=== PATIENT | male | born 1985 | race Caucasian/White ===

== ENCOUNTER 2023-05-25 14:53 | Emergency (ER) | payer OTHER, SELFPAY ==
[2023-05-25 15:04] VITALS: BP 138/66; PULSE 85; RESP 18; TEMP 36.9; O2SAT 97; BMI 25.7
[2023-05-25 16:18] LABS: Add Manual Diff / Slide Review NO; Basophils Absolute Auto 100 /uL (0-100); Basophils Percent Auto 1.1 % (0-2); Eosinophils Absolute Auto 200 /uL (0-450); Eosinophils Percent Auto 2.9 % (2-4); Hemoglobin 14.2 g/dL (13.5-17.5); Lymphocytes Absolute Auto 1600 /uL (1100-4500); Lymphocytes Percent Auto 27.8 % (25-40); Mean Corpuscular HGB Conc 35.4 % (30-36); Mean Corpuscular Hemoglobin 31.3 PG (26-34); Mean Corpuscular Volume 88.4 fL (80-100); Monocytes Absolute Auto 400 /uL (0-900); Monocytes Percent Auto 6.1 % (3-14); Neutrophils Absolute Auto 3600 /uL (1500-7000); Neutrophils Percent Auto 62.1 % (50-75); Platelet Count 231 X10^3/uL (150-400); Red Blood Cell Count 4.53 X10^6/uL (4.5-5.9); White Blood Cell Count 5.8 X10^3/uL (4.5-11.0)
[2023-05-25 16:22] LABS: BUN Creatinine Ratio 10.8 (6-22); Blood Urea Nitrogen 11 mg/dL (9-20); Calcium 8.9 mg/dL (8.4-10.2); Carbon Dioxide 29 mmol/L (22-32); Chloride 98 mmol/L (98-107); Estimated Glomerular Filt Rate > 60 mL/min (>60); Glucose 90 mg/dL (70-100); HEMOLYSIS < 15 (0-50); Potassium 4.1 mmol/L (3.4-5.1); Sodium 135 mmol/L (137-145)
--- NOTE | 2023-05-25 16:40 | ED.DIZZY ---
HPI - Dizziness <Danyell Ashley PA-C - Last Filed: 05/25/23 19:38> General Chief Complaint: Dizziness Stated Complaint: vertigo/fatigue Time Seen by Provider: 05/25/23 16:09 Source: patient Mode of arrival: Ambulatory History of Present Illness HPI Narrative: Patient is a 38-year-old male presenting for evaluation of dizziness on and off for the last month. Reports that it occurs quickly then leaves quickly multiple times throughout the day. He notes that at night sometimes he feels that his bed is moving. He says that when this happens at night, his heart rate increases and he feels that occasionally it skips a beat. He denies any chest pain. He does note that he is had a headache the last couple days. He denies any history of heart issues or family history. He states that when these symptoms started a month ago, it presented with a high-pitched noise. He says that the high-pitched sound in his right ear has not returned. He denies any sore throat, cough, fever or runny nose. He does notice sensation of facial fullness especially in his forehead for the last week. He denies any hearing loss or clogged sensation in his ears or ear pain. He denies any recent fever, body aches or chills. He does note that it has generally become difficult soaks in his eyes. He reports he has noticed an odd sensation in his left hand but he also says that with his anxiety he is uncertain if he was imagining it. He says it is not present now. He denies any onset of dizziness or worsening with activity. Related Data Allergies Allergy/AdvReac Type Severity Reaction Status Date / Time No Known Drug Allergies Allergy Verified 05/25/23 15:04 Review of Systems <Danyell Ashley PA-C - Last Filed: 05/25/23 19:38> Review of Systems Narrative: per HPI Patient History <Danyell Ashley PA-C - Last Filed: 05/25/23 19:38> Social History Smoking Status: Current some day smoker Smoking Status: Current some day smoker tobacco type: vaping alcohol intake frequency: holidays/special occasions only Substance Use Type: does not use Exam <Danyell Ashley PA-C - Last Filed: 05/25/23 19:38> Initial Vital Signs Initial Vital Signs: Vital Signs Temperature 98.4 F 05/25/23 15:04 Pulse Rate 85 05/25/23 15:04 Respiratory Rate 18 05/25/23 15:04 Blood Pressure 138/66 05/25/23 15:04 Pulse Oximetry 97 05/25/23 15:04 Oxygen Delivery Method Room Air 05/25/23 15:04 GENERAL: 38 year old patient appears stated age. Well-developed patient, in no acute distress. HEAD: Atraumatic. Normocephalic. EYES: Pupils equal round and reactive. Extraocular motions intact. No nystagmus noted No scleral icterus. No injection or drainage. ENT: Nose without bleeding, purulent drainage. Throat with mild erythema, no tonsillar hypertrophy or exudate. Airway patent. Uvula midline left TM appears pearly springer with good cone of light, right TM appears somewhat dull with no bulging or erythema Nontender to mastoid, tragus or pinna palpation. NECK: Trachea midline. Non tender. No cervical lymphadenopathy no bruits noted CARDIOVASCULAR: Regular rate and rhythm without murmurs, gallops, or rubs. RESPIRATORY: Clear to auscultation. Breath sounds equal bilaterally. No wheezes, rales, or rhonchi. EXTREMITIES: No edema or joint tenderness. NEURO: AOx3. [id number] intact bilaterally, tech journeyman pressman strength bilaterally, intact elbow flexion extension, intact knee flexion and extension and toe dorsiflexion and plantar flexion bilaterally. Rapid alternating movements intact, negative Romberg sign. Patient maintains good balance while standing. SKIN: No rash or erythema of visible areas <Eliana Torres DO - Last Filed: 05/26/23 18:12> Initial Vital Signs Initial Vital Signs: Vital Signs Temperature 98.4 F 05/25/23 15:04 Pulse Rate 85 05/25/23 15:04 Respiratory Rate 18 05/25/23 15:04 Blood Pressure 138/66 05/25/23 15:04 Pulse Oximetry 97 05/25/23 15:04 Oxygen Delivery Method Room Air 05/25/23 15:04 Course <Danyell Ashley PA-C - Last Filed: 05/25/23 19:38> Orders Ordered: ED Orders 05/25/23 15:52 BMP [Basic Metabolic Panel] Stat Complete Blood Count AUTO DIFF Stat 05/25/23 16:59 EKG-12 Lead Stat Vital Signs Vital signs: Vital Signs - 8 hr 05/25/23 15:04 05/25/23 17:35 Temperature 98.4 F Pulse Rate 85 62 Respiratory Rate 18 14 Blood Pressure 138/66 128/72 Pulse Oximetry 97 99 Oxygen Delivery Method Room Air Room Air <Eliana Torres DO - Last Filed: 05/26/23 18:12> Orders Ordered: ED Orders 05/25/23 15:52 BMP [Basic Metabolic Panel] Stat Complete Blood Count AUTO DIFF Stat 05/25/23 16:59 EKG-12 Lead Stat Vital Signs Vital signs: Vital Signs - 8 hr 05/25/23 15:04 05/25/23 17:35 Temperature 98.4 F Pulse Rate 85 62 Respiratory Rate 18 14 Blood Pressure 138/66 128/72 Pulse Oximetry 97 99 Oxygen Delivery Method Room Air Room Air MDM - Dizziness <Danyell Ashley PA-C - Last Filed: 05/25/23 19:38> Lab Data 05/25/23 15:52 05/25/23 15:52 Labs: Lab Results 05/25/23 05/25/23 Range/Units 15:52 15:52 WBC 5.8 (4.5-11.0) X10^3/uL RBC 4.53 (4.5-5.9) X10^6/uL Hgb 14.2 (13.5-17.5) g/dL Hct 40.0 L (41-53) % MCV 88.4 (80-100) fL MCH 31.3 (26-34) PG MCHC 35.4 (30-36) % RDW 13.0 (11.6-14.8) % Plt Count 231 (150-400) X10^3/uL Neut % (Auto) 62.1 (50-75) % Lymph % (Auto) 27.8 (25-40) % Wilcox % (Auto) 6.1 (3-14) % Eos % (Auto) 2.9 (2-4) % Baso % (Auto) 1.1 (0-2) % Neut # (Auto) 3600 (7867-6487) /uL Lymph # (Auto) 1600 (9976-5895) /uL Wilcox # (Auto) 400 (0-900) /uL Eos # (Auto) 200 (0-450) /uL Baso # (Auto) 100 (0-100) /uL Sodium 135 L (137-145) mmol/L Potassium 4.1 (3.4-5.1) mmol/L Chloride 98 (98-107) mmol/L Carbon Dioxide 29 (22-32) mmol/L BUN 11 (9-20) mg/dL Creatinine 1.02 (0.66-1.25) mg/dL Estimated GFR > 60 (>60) mL/min BUN/Creatinine Ratio 10.8 (6-22) Glucose 90 (70-100) mg/dL Calcium 8.9 (8.4-10.2) mg/dL ECG Data Interpretation: EKG shows sinus bradycardia with normal SD interval and QT less than 440. Normal axis deviation. MDM Narrative Medical decision making narrative: Patient is a 38-year-old male reporting for evaluation of acute onset and offset of dizziness worsening over the last week along with headache. He reports a sensation of frontal fullness above his eyes but denies nasal congestion. Physical exam showed a dull appearance in his right tympanic membrane with no erythema or bulging. No nystagmus present on exam nor elicitation of previously discussed dizziness. Neurological exam was normal and patient noted no focal neurological deficits so my suspicion for stroke is quite low. Heart rate was regular. Multiple etiologies for patient's symptoms considered including, but not limited to: CAD, carotid stenosis, migraines, BPPV, labyrinthitis, allergic rhinitis, CVA Prior Charts reviewed: None available Labs reviewed and interpreted by myself: Labs reviewed show normal CBC and normal CMP Discussed with patient that his symptoms seem consistent with a vestibular cause for his own off dizziness. EKG today showed sinus bradycardia with rate of 56. SD interval and QT were normal with a regular rhythm. Reviewed with Dr. Torres. I recommend that he continue follow up with his primary care provider or an ENT to continue evaluating symptoms of vertigo. We also discussed he may trial intranasal Flonase as his frontal fullness may indicate possible allergic rhinitis. He is agreeable with this plan of care Findings and discharge diagnosis discussed with patient/family followed by verbalization of understanding Return precautions discussed with patient/family whom verbalize understanding of diagnosis and plan <Eliana Torres, DO - Last Filed: 05/26/23 18:12> Lab Data Labs: Lab Results 05/25/23 05/25/23 Range/Units 15:52 15:52 WBC 5.8 (4.5-11.0) X10^3/uL RBC 4.53 (4.5-5.9) X10^6/uL Hgb 14.2 (13.5-17.5) g/dL Hct 40.0 L (41-53) % MCV 88.4 (80-100) fL MCH 31.3 (26-34) PG MCHC 35.4 (30-36) % RDW 13.0 (11.6-14.8) % Plt Count 231 (150-400) X10^3/uL Neut % (Auto) 62.1 (50-75) % Lymph % (Auto) 27.8 (25-40) % Wilcox % (Auto) 6.1 (3-14) % Eos % (Auto) 2.9 (2-4) % Baso % (Auto) 1.1 (0-2) % Neut # (Auto) 3600 (8597-8996) /uL Lymph # (Auto) 1600 (9164-9372) /uL Wilcox # (Auto) 400 (0-900) /uL Eos # (Auto) 200 (0-450) /uL Baso # (Auto) 100 (0-100) /uL Sodium 135 L (137-145) mmol/L Potassium 4.1 (3.4-5.1) mmol/L Chloride 98 (98-107) mmol/L Carbon Dioxide 29 (22-32) mmol/L BUN 11 (9-20) mg/dL Creatinine 1.02 (0.66-1.25) mg/dL Estimated GFR > 60 (>60) mL/min BUN/Creatinine Ratio 10.8 (6-22) Glucose 90 (70-100) mg/dL Calcium 8.9 (8.4-10.2) mg/dL Discharge Plan Departure Patient Disposition: Home Clinical Impression: Vertigo Activity Restrictions/Additional Instructions: You were diagnosed with vertigo today. You may continue treatment with Dramamine or meclizine as needed. Your EKG did not show any concerning findings today and your labs were normal as well. Continue taking multivitamin. I recommend you continue follow up with your primary care provider or an ENT to continue evaluating the cause of your vertigo. Please follow up in the emergency department if you notice any one-sided weakness, visual disturbance or other concerning symptoms such as chest pain, palpitations. Thank you for coming in today for your care. Referrals: ProviderTonya [Primary Care Provider] - Stand Alone Forms: Patient Portal/API <Eliana Torres DO - Last Filed: 05/26/23 18:12> Cosign ED Attending Sadiqature Attestation: I was immediately available in the department for consultation. Documentation has been reviewed.
[2023-05-25 17:35] VITALS: BP 128/72; PULSE 62; RESP 14; O2SAT 99
== END 2023-05-25 17:35 | disposition home or self-care (01) ==
PROVIDERS: Emergency Provider Physician Assistant
DX: R42 Dizziness and giddiness (principal); R51.9 Headache, unspecified; R00.1 Bradycardia, unspecified
CPT/HCPCS: 36415; 80048; 85025; 93005; 99283

== ENCOUNTER → 2024-03-08 11:32 | Outpatient (CLI) | payer OTHER, SELFPAY ==
--- NOTE | 2024-03-08 11:33 | DI.MRI.S_ITS ---
PROCEDURE: MR BRAIN (IAC) WWO CON INDICATIONS: Vertigo of central origin Dizziness and giddiness TECHNIQUE: Noncontrast sagittal T1 spin echo, axial FLAIR, axial gradient echo, axial diffusion and ADC through the brain. Axial thin-slice 3D CISS, coronal TruFISP, axial T1 spin echo with fat saturation through the internal auditory canals. After the administration of contrast, thin slice axial and coronal T1 spin echo with fat saturation through the internal auditory canals, and axial and coronal and sagittal T1 spin echo with fat saturation through the brain. COMPARISON: None. FINDINGS: Image quality: Excellent. Cerebellopontine angles: No cerebellopontine angle masses. Inner ear structures appear normally formed. No suspicious enhancement in the internal auditory canal or along the course of the 7th cranial nerve. CSF spaces: Ventricles are normal in size and shape. No extra-axial fluid collections. Basal cisterns are patent. Brain: No intracranial bleeds or mass effects. Daniel-white matter interface is intact. No abnormal intracranial enhancement. Diffusion weighted images demonstrate no acute ischemic insults. Brainstem appears normal. Normal intravascular flow voids are present. Skull and face: Calvarial marrow signal is normal. Orbits appear normal. Sinuses: Sinuses and mastoids are clear. IMPRESSION: No imaging explanation is found for this patient's presenting symptoms. No masses or abnormal enhancement are seen within the cerebellopontine angle cisterns or within the internal auditory canals. Dictated by: Manuel Isidro M.D. on 03/08/2024 at 12:35 Approved by: Manuel Isidro M.D. on 03/08/2024 at 12:35
== END ==
PROVIDERS: Referring Provider Otolaryngology; Visit Provider Otolaryngology
DX: H81.4 Vertigo of central origin (principal); G44.89 Other headache syndrome; R41.89 Other symptoms and signs involving cognitive functions and awareness
CPT/HCPCS: 70553; A9579